=== PATIENT | male | born 1945 | race Caucasian/White ===

== ENCOUNTER → 2016-12-17 | Outpatient (CLI) | payer MEDICARE | END | disposition home or self-care (01) | LOC: CVU 11:46 | PROVIDERS: ATTEND Internal Medicine Cardiovascular Disease | DX: I65.23 Occlusion and stenosis of bilateral carotid arteries (principal); H34.9 Unspecified retinal vascular occlusion; I10 Essential (primary) hypertension; H54.42 Blindness, left eye, normal vision right eye; I25.2 Old myocardial infarction; Z95.1 Presence of aortocoronary bypass graft | CPT/HCPCS: 93880 ==

== ENCOUNTER → 2017-05-15 | Outpatient (CLI) | payer MEDICARE ==
[~2017-05-15] MED LIST: REGADENOSON 0.4 MG/5 ML SYRINGE ONE
== END | disposition home or self-care (01) ==
LOC: CFH 08:06
PROVIDERS: ATTEND Internal Medicine Cardiovascular Disease
DX: I08.0 Rheumatic disorders of both mitral and aortic valves (principal); I25.9 Chronic ischemic heart disease, unspecified; I10 Essential (primary) hypertension; E78.5 Hyperlipidemia, unspecified; Z95.1 Presence of aortocoronary bypass graft; Z85.46 Personal history of malignant neoplasm of prostate
CPT/HCPCS: 78452; 93017; 93306; A9502; J2785

== ENCOUNTER → 2020-05-25 | Outpatient (CLI) | payer MEDICARE ==
[~2020-05-25] MED LIST changes: +ALLO100T30 PO; +ASCO500C2 PO; +ASPI81TA45 PO; +ATOR40TA78 PO; +BUDE10.2 INH; +BUME2TAB3 PO; +CALC0.25 PO; +FERR324T5 PO; +HYDR100T25 PO; +LEVO88TA4 PO; +METO-99 PO; +NIAC750T4 PO; -REGADENOSON 0.4 MG/5 ML SYRINGE ONE; +VIT1TABL73 PO
== END | disposition home or self-care (01) ==
LOC: CVU 08:30
PROVIDERS: ATTEND Internal Medicine Cardiovascular Disease
DX: I08.0 Rheumatic disorders of both mitral and aortic valves (principal); I11.9 Hypertensive heart disease without heart failure; I65.22 Occlusion and stenosis of left carotid artery; Z95.1 Presence of aortocoronary bypass graft
CPT/HCPCS: 93306